=== PATIENT | female | born 1975 | race American Indian/Alaskan Native ===

== ENCOUNTER 2016-11-03 02:02 | Emergency (ER) | payer MEDICAID ==
[2016-11-03] MEDS ORDERED: BENADRYL IV ONE ×2 (08:02→10:29)
[2016-11-03] MEDS ORDERED: MORPHINE IV ONE (08:02)
[2016-11-03] MEDS ORDERED: ZOFRAN IV ONE (08:02)
--- NOTE | 2016-11-03 08:04 | Emergency Department Report ---
HPI - General Chief Complaint: Abdominal Pain Time Seen by Provider: 11/03/16 07:47 - HPI HPI: This is a 40-year-old Afro-[place]ron[place] female who presents to the emergency department with a four-day history of abdominal pain, nausea and vomiting that she believes is an exacerbation of her gastroparesis. She has a past medical history of asthma, CHF, diabetes, hypertension, gastroparesis, spina bifida. She has a past surgical history of appendectomy and cholecystectomy. Patient says she recently saw her advertising coordinator and was diagnosed with an upper hiatal hernia. She went to see [facility] [place] yesterday and is going to be set up for more evaluations for possible surgical repair of that. She has been trying to take her Phenergan, Reglan and a "pain pill" but she is unable to keep it down to treat herself. No recent travel or sick contacts at home. Her primary care doctor is a Dr. Aamral, and she says that she sees a Dr. Redding for gastroenterology "across the street." ED Past Medical Hx - Past Medical History Previous Medical History?: Yes Hx Hypertension: Yes (pateint states mild CHF) Hx CVA: No Hx Heart Attack/AMI: No Hx Congestive Heart Failure: Yes Hx Diabetes: Yes Hx Deep Vein Thrombosis: No Hx Pulmonary Embolism: No Hx GERD: No Hx Liver Disease: No Hx Renal Disease: No Hx Sickle Cell Disease: No Hx Arthritis: No Hx Headaches / Migraines: No Hx Seizures: No Hx Kidney Stones: No Hx Psychiatric Treatment: No Hx Asthma: Yes Hx COPD: No Hx Dementia: No Hx HIV: No Additional medical history: gastroparesis. spina bifida. OBESITY - Surgical History Past Surgical History?: Yes Hx Coronary Stent: No Hx Open Heart Surgery: No Hx Pacemaker: No Hx Internal Defibrillator: No Hx Cholecystectomy: Yes Hx Appendectomy: Yes Hx Breast Surgery: Yes (REDUCTION) Additional Surgical History: port, c- section - Social History Smoking Status: Never Smoker Substance Use Type: Alcohol - Medications Home Medications: Home Medications Medication Instructions Recorded Confirmed Last Taken Type Lisinopril [Zestril TAB] 10 mg PO QDAY 04/28/14 11/03/16 04/27/14 History Insulin NPH Hum/Reg Insulin Hm 30 unit SQ QAM 09/14/15 11/03/16 Unknown History [HumuLIN 70-30 Vial] Insulin NPH Hum/Reg Insulin Hm 40 unit SQ QPM 09/14/15 11/03/16 Unknown History [HumuLIN 70-30 Vial] Sertraline [Zoloft] 100 mg PO QDAY 09/14/15 11/03/16 Unknown History methOCARBAMOL [Robaxin TAB] 500 mg PO BID 06/27/16 11/03/16 Unknown History Pantoprazole [Protonix TAB] 40 mg PO QDAY #30 tablet 08/16/16 11/03/16 Unknown Rx oxyCODONE /ACETAMINOPHEN [Percocet 1 tab PO Q6HR PRN #12 tablet 08/16/16 Unknown Rx 5/325 mg] Labetalol [Normodyne TAB] 100 mg PO BID #60 tablet 08/19/16 11/03/16 Unknown Rx Ondansetron [Zofran Odt] 4 mg PO Q6H #14 tab.rapdis 08/19/16 11/03/16 Unknown Rx Metoclopramide [Reglan] 10 mg PO TID PRN #20 tab 08/23/16 11/03/16 Unknown Rx traMADol [Ultram 50 MG tab] 50 mg PO Q4HR PRN #12 tablet 08/23/16 11/03/16 Unknown Rx Promethazine [Phenergan TAB] 25 mg PO Q6HR PRN #10 tab 08/24/16 11/03/16 Unknown Rx ED Review of Systems ROS: Stated complaint: EMESIS/BACK PAIN Other details as noted in HPI Comment: All other systems reviewed and negative Constitutional: denies: chills, fever Eyes: denies: eye pain, eye discharge, vision change ENT: denies: ear pain, throat pain Respiratory: denies: cough, shortness of breath, wheezing Cardiovascular: denies: chest pain, palpitations Gastrointestinal: abdominal pain, nausea, vomiting Genitourinary: denies: urgency, dysuria, discharge Musculoskeletal: back pain. denies: arthralgia Skin: denies: rash, lesions Neurological: denies: headache, weakness, paresthesias Physical Exam - Physical Exam Vital Signs: Vital Signs 11/03/16 11/03/16 11/03/16 02:23 05:00 05:30 Temperature 97.4 F L 99 F Pulse Rate 87 88 Respiratory 20 18 18 Rate Blood Pressure 159/97 Blood Pressure 152/88 [Right] O2 Sat by Pulse 100 98 98 Oximetry Physical Exam: GENERAL: The patient is well-developed well-nourished. HEENT: Normocephalic. Atraumatic. Extraocular motions are intact. Patient has moist mucous membranes. Pupils equal reactive to light bilaterally. NECK: Supple. Trachea is midline. CHEST/LUNGS: Clear to auscultation. There is no respiratory distress noted. HEART/CARDIOVASCULAR: Regular. There is no tachycardia. There is no gallop rub or murmur. ABDOMEN: Abdomen is soft. Generalized tenderness to palpation of the abdomen. No guarding rebound tenderness. No peritoneal signs. Morbidly obese habitus. Patient has normal bowel sounds. There is no abdominal distention. SKIN: There is no rash. There is no diaphoresis. NEURO: The patient is awake, alert, and oriented. The patient is cooperative. The patient has no focal neurologic deficits. The patient has normal speech. MUSCULOSKELETAL: There is no tenderness or deformity. There is no limitation range of motion. There is no evidence of acute injury. ED Course Vital Signs 11/03/16 11/03/16 11/03/16 02:23 05:00 05:30 Temperature 97.4 F L 99 F Pulse Rate 87 88 Respiratory 20 18 18 Rate Blood Pressure 159/97 Blood Pressure 152/88 [Right] O2 Sat by Pulse 100 98 98 Oximetry ED Medical Decision Making - Lab Data Result diagrams: 11/03/16 08:15 11/03/16 08:15 - Radiology Data Radiology results: image reviewed interpreted by me: Abdominal x-ray shows nonspecific nonobstructive bowel gas. - Medical Decision Making 40-year-old female with a history of gastroparesis presents to the emergency department with abdominal pain, nausea and vomiting. Patient's vital signs of in stable throughout her ED course. The patient's labs are mostly unremarkable without any signs of infection in the blood or urine, electrolyte abnormalities , renal insufficiency, and the patient's belly labs of a normal including lipase , LFTs and bilirubin. An abdominal x-ray was done does not show any signs of obstruction and was confirmed as normal by radiology. Patient was given some pain medication and antinausea medication and upon reevaluation she is feeling much better. She'll be discharged home to follow-up with her primary care doctor and advertising coordinator and to continue looking into her history of hiatal hernia that may need surgical repair. The patient will return to the emergency department with any further worsening of her symptoms or any acute distress. - Differential Diagnosis gastroparesis, colitis, diverticulitis, gastritis, food poisoning Critical Care Time: No Critical care attestation.: If time is entered above; I have spent that time in minutes in the direct care of this critically ill patient, excluding procedure time. ED Disposition Clinical Impression: Gastroparesis, Nausea and vomiting in adult Abdominal pain Qualifiers: Abdominal location: generalized Qualified Code(s): R10.84 - Generalized abdominal pain Hypertension Qualifiers: Hypertension type: essential hypertension Qualified Code(s): I10 - Essential ( primary) hypertension Disposition: DISCHARGED TO HOME OR SELFCARE Is pt being admited?: No Does the pt Need Aspirin: No Condition: Stable Instructions: Abdominal Pain (ED), Hypertension (ED), Acute Nausea and Vomiting (ED) Additional Instructions: Please follow-up with your primary care doctor, advertising coordinator, and the surgery [facility] physicians. Return to the emergency department with any worsening of your symptoms or any acute distress. Referrals: LINDA JEROME MD [Primary Care Provider] - 3-5 Days Time of Disposition: 11:37
[2016-11-03] MEDS ORDERED: DILAUDID IV ONE ×3 (08:17→11:32)
[2016-11-03 08:51] LABS: Basophils % (Auto) 0.4 % (0.0-1.8); Eosinophils % (Auto) 1.1 % (0.0-4.3); Hematocrit 42.6 % (30.3-42.9); Hemoglobin 13.2 gm/dl (10.1-14.3); Mean Corpuscular HGB Conc 31 % (30-34); Mean Corpuscular Volume 81 fl (79-97); Platelet Count 228 K/mm3 (140-440); Red Blood Count 5.27 M/mm3 (3.65-5.03); Red Cell Distribution Width 18.6 % (13.2-15.2); White Blood Count 3.9 K/mm3 (4.5-11.0)
[2016-11-03 08:56] LABS: Mean Corpuscular Hemoglobin 25 pg (28-32)
[2016-11-03 09:09] LABS: Alanine Aminotransferase 6 units/L (7-56); Albumin 3.8 g/dL (3.9-5); Alkaline Phosphatase 104 units/L (35-129); Anion Gap 18 mmol/L; BUN/Creatinine Ratio 14.16; Bilirubin,Total < 0.2 mg/dL (0.1-1.2); Blood Urea Nitrogen 17 mg/dL (7-17); Carbon Dioxide 25 mmol/L (22-30); Chloride 100.3 mmol/L (98-107); Glucose 180 mg/dL (65-100); Lipase 14 units/L (13-60); Potassium 4.2 mmol/L (3.6-5.0); Sodium 139 mmol/L (137-145); Total Protein 7.7 g/dL (6.3-8.2)
[2016-11-03 09:42] LABS: Bilirubin,Urine NEG (Negative); Blood,Urine NEG (Negative); Ketones,Urine NEG (Negative); Leukocyte Esterase,Urine NEG (Negative); Nitrite,Urine NEG (Negative); Protein,Urine <15 mg/dL mg/dL (Negative); Urobilinogen,Urine < 2.0 mg/dL (<2.0)
--- NOTE | 2016-11-03 11:19 | XRay Report ---
ABDOMEN 2 VIEWS: HISTORY: Abdominal pain. FINDINGS: No free intraperitoneal air. Stool in colon. No bowel distention or wall thickening. No radiopaque calculus or abnormal calcification. No fluid levels. IMPRESSION: Stool in colon. No bowel obstruction.
[2016-11-03 11:47] VITALS: BP 133/77
[2016-11-03] MEDS ORDERED: FLUSH HEPARIN IV ONE (11:48)
== END 2016-11-03 12:03 | disposition home or self-care (01) ==
LOC: ED 02:02
DX: K31.84 Gastroparesis (principal); I10 Essential (primary) hypertension; E11.9 Type 2 diabetes mellitus without complications; I50.9 Heart failure, unspecified; J45.909 Unspecified asthma, uncomplicated; E66.9 Obesity, unspecified; Z79.4 Long term (current) use of insulin; Z98.890 Other specified postprocedural states
CPT/HCPCS: 36415; 74020; 80053; 81001; 81025; 83690; 85025; 96374; 96375; 96376; 99284; J1170; J1200; J1642; J2405; J2270

== ENCOUNTER 2016-12-31 04:38 | Emergency (ER) | payer MEDICAID ==
[2016-12-31 06:08] VITALS: BP 171/129
== END 2016-12-31 06:20 | disposition left against medical advice (07) ==
LOC: ED 04:38
DX: R11.10 Vomiting, unspecified (principal); R10.9 Unspecified abdominal pain; Z53.21 Procedure and treatment not carried out due to patient leaving prior to being seen by health care provider
CPT/HCPCS: 82962

== ENCOUNTER 2017-01-05 04:18 | Emergency (ER) | payer MEDICAID ==
[2017-01-05 04:51] VITALS: BP 182/102
== END 2017-01-05 04:30 | disposition left against medical advice (07) ==
LOC: ED 04:18
DX: R11.2 Nausea with vomiting, unspecified (principal); Z53.21 Procedure and treatment not carried out due to patient leaving prior to being seen by health care provider

== ENCOUNTER 2017-01-07 04:43 | Emergency (ER) | payer MEDICAID ==
[2017-01-07] MEDS ORDERED: ZOFRAN ODT PO/SL ONE (10:20)
[2017-01-07] MEDS ORDERED: DILAUDID IV ONE ×3 (10:20→14:22)
[2017-01-07] MEDS ORDERED: NACL 0.9% 1000 ML 1,000 ML IV ONE (10:20)
[2017-01-07] MEDS ORDERED: REGLAN IV ONE (10:20)
[2017-01-07] MEDS ORDERED: BENADRYL IV ONE ×3 (10:21→14:23)
[2017-01-07 10:22] LABS: Basophils % (Auto) 0.4 % (0.0-1.8); Eosinophils % (Auto) 1.1 % (0.0-4.3); Hematocrit 26.7 % (30.3-42.9); Hemoglobin 8.3 gm/dl (10.1-14.3); Mean Corpuscular HGB Conc 31 % (30-34); Mean Corpuscular Volume 84 fl (79-97); Platelet Count 396 K/mm3 (140-440); Red Blood Count 3.19 M/mm3 (3.65-5.03); Red Cell Distribution Width 17.5 % (13.2-15.2)
[2017-01-07 10:24] LABS: Mean Corpuscular Hemoglobin 26 pg (28-32)
--- NOTE | 2017-01-07 10:24 | Emergency Department Report ---
ED Abdominal Pain HPI - General Chief Complaint: Abdominal Pain Stated Complaint: ABD PAIN, VOMINTING Time Seen by Provider: 01/07/17 10:03 Source: patient Mode of arrival: Ambulatory Limitations: No Limitations - History of Present Illness Complaint: abdominal pain -: Gradual (review of old equal to light.) Location: diffuse Radiation: none Migration to: no migration Severity: mild Severity scale (0 -10): 10 Quality: cramping Consistency: intermittent Improves With: nothing Worsens With: nothing Associated Symptoms: nausea, vomiting. denies: diarrhea, fever, chills, constipation, dysuria, hematemesis, hematochezia, melena, hematuria, anorexia, syncope - Related Data Home Medications Medication Instructions Recorded Confirmed Last Taken Lisinopril [Zestril TAB] 10 mg PO QDAY 04/28/14 11/03/16 04/27/14 Insulin NPH Hum/Reg Insulin Hm 30 unit SQ QAM 09/14/15 11/03/16 Unknown [HumuLIN 70-30 Vial] Insulin NPH Hum/Reg Insulin Hm 40 unit SQ QPM 09/14/15 11/03/16 Unknown [HumuLIN 70-30 Vial] Sertraline [Zoloft] 100 mg PO QDAY 09/14/15 11/03/16 Unknown methOCARBAMOL [Robaxin TAB] 500 mg PO BID 06/27/16 11/03/16 Unknown Previous Rx's Medication Instructions Recorded Last Taken Type Pantoprazole [Protonix TAB] 40 mg PO QDAY #30 tablet 08/16/16 Unknown Rx Labetalol [Normodyne TAB] 100 mg PO BID #60 tablet 08/19/16 Unknown Rx Ondansetron [Zofran Odt] 4 mg PO Q6H #14 tab.rapdis 08/19/16 Unknown Rx Metoclopramide [Reglan] 10 mg PO TID PRN #20 tab 08/23/16 Unknown Rx Omeprazole Magnesium [PriLOSEC Otc] 20 mg PO QDAY #14 tablet. 11/18/16 Unknown Rx Promethazine [Phenergan TAB] 25 mg PO Q6HR PRN #10 tab 11/18/16 Unknown Rx Promethazine [Phenergan TAB] 25 mg PO Q8HR PRN #20 tab 01/07/17 Unknown Rx Allergies Allergy/AdvReac Type Severity Reaction Status Date / Time ketorolac tromethamine Allergy Severe Swelling Verified 07/19/16 09:00 [From Toradol] meperidine HCl [From Demerol] Allergy Swelling Verified 07/19/16 09:00 ED Review of Systems ROS: Stated complaint: ABD PAIN, VOMINTING Other details as noted in HPI Constitutional: denies: chills, fever Eyes: denies: eye pain, eye discharge, vision change ENT: denies: ear pain, throat pain Respiratory: denies: cough, shortness of breath, wheezing Cardiovascular: denies: chest pain, palpitations Endocrine: no symptoms reported Gastrointestinal: abdominal pain, nausea, vomiting. denies: diarrhea Genitourinary: denies: urgency, dysuria, discharge Musculoskeletal: denies: back pain, joint swelling, arthralgia Skin: denies: rash, lesions Neurological: denies: headache, weakness, paresthesias Psychiatric: denies: anxiety, depression Hematological/Lymphatic: denies: easy bleeding, easy bruising ED Past Medical Hx - Past Medical History Hx Hypertension: Yes (pateint states mild CHF) Hx CVA: No Hx Heart Attack/AMI: No Hx Congestive Heart Failure: Yes Hx Diabetes: Yes Hx Deep Vein Thrombosis: No Hx Pulmonary Embolism: No Hx GERD: No Hx Liver Disease: No Hx Renal Disease: No Hx Sickle Cell Disease: No Hx Arthritis: No Hx Headaches / Migraines: No Hx Seizures: No Hx Kidney Stones: No Hx Psychiatric Treatment: No Hx Asthma: Yes Hx COPD: No Hx Dementia: No Hx HIV: No Additional medical history: gastroparesis. spina bifida. OBESITY - Surgical History Hx Coronary Stent: No Hx Open Heart Surgery: No Hx Pacemaker: No Hx Internal Defibrillator: No Hx Cholecystectomy: Yes Hx Appendectomy: Yes Hx Breast Surgery: Yes (REDUCTION) Additional Surgical History: port, c- section - Social History Smoking Status: Never Smoker Substance Use Type: None - Medications Home Medications: Home Medications Medication Instructions Recorded Confirmed Last Taken Type Lisinopril [Zestril TAB] 10 mg PO QDAY 04/28/14 11/03/16 04/27/14 History Insulin NPH Hum/Reg Insulin Hm 30 unit SQ QAM 09/14/15 11/03/16 Unknown History [HumuLIN 70-30 Vial] Insulin NPH Hum/Reg Insulin Hm 40 unit SQ QPM 09/14/15 11/03/16 Unknown History [HumuLIN 70-30 Vial] Sertraline [Zoloft] 100 mg PO QDAY 09/14/15 11/03/16 Unknown History methOCARBAMOL [Robaxin TAB] 500 mg PO BID 06/27/16 11/03/16 Unknown History Pantoprazole [Protonix TAB] 40 mg PO QDAY #30 tablet 08/16/16 11/03/16 Unknown Rx Labetalol [Normodyne TAB] 100 mg PO BID #60 tablet 08/19/16 11/03/16 Unknown Rx Ondansetron [Zofran Odt] 4 mg PO Q6H #14 tab.rapdis 08/19/16 11/03/16 Unknown Rx Metoclopramide [Reglan] 10 mg PO TID PRN #20 tab 08/23/16 11/03/16 Unknown Rx Omeprazole Magnesium [PriLOSEC Otc] 20 mg PO QDAY #14 tablet. 11/18/16 Unknown Rx Promethazine [Phenergan TAB] 25 mg PO Q6HR PRN #10 tab 11/18/16 Unknown Rx Promethazine [Phenergan TAB] 25 mg PO Q8HR PRN #20 tab 01/07/17 Unknown Rx ED Physical Exam - General Limitations: No Limitations General appearance: alert, in no apparent distress - Head Head exam: Present: atraumatic, normocephalic - Eye Eye exam: Present: normal appearance - ENT ENT exam: Present: mucous membranes moist - Neck Neck exam: Present: normal inspection - Respiratory Respiratory exam: Present: normal lung sounds bilaterally. Absent: respiratory distress - Cardiovascular Cardiovascular Exam: Present: regular rate, normal rhythm. Absent: systolic murmur, diastolic murmur, rubs, gallop - GI/Abdominal GI/Abdominal exam: Present: soft, normal bowel sounds. Absent: distended, tenderness, guarding, rebound, rigid, organomegaly, mass, bruit, pulsatile mass , hernia - Rectal Rectal exam: Present: deferred - Extremities Exam Extremities exam: Present: normal inspection - Back Exam Back exam: Present: normal inspection - Neurological Exam Neurological exam: Present: alert, oriented X3 - Psychiatric Psychiatric exam: Present: normal affect, normal mood - Skin Skin exam: Present: warm, dry, intact, normal color. Absent: rash ED Course Vital Signs 01/07/17 01/07/17 01/07/17 05:23 09:50 10:05 Temperature 98.5 F 98.6 F Pulse Rate 104 H 99 H Respiratory 18 20 Rate Blood Pressure 176/101 Blood Pressure 176/101 146/102 [Left] O2 Sat by Pulse 100 100 100 Oximetry 01/07/17 13:20 Temperature Pulse Rate 83 Respiratory 18 Rate Blood Pressure Blood Pressure 161/105 [Left] O2 Sat by Pulse 100 Oximetry ED Medical Decision Making - Lab Data Result diagrams: 01/07/17 09:48 01/07/17 09:48 - Radiology Data Radiology results: report reviewed - Medical Decision Making Patient improved here in the ER, offered admission but she needs to go home and take care of her daughters, labs within normal limits, no ct abd/pelvis after her abdominal exam is non tender , no guarding , no rebound, tolerating po here. Critical care attestation.: If time is entered above; I have spent that time in minutes in the direct care of this critically ill patient, excluding procedure time. ED Disposition Clinical Impression: Acute abdominal pain, Gastritis, Morbid obesity, Nausea and vomiting in adult Disposition: DISCHARGED TO HOME OR SELFCARE Is pt being admited?: No Does the pt Need Aspirin: No Condition: Good Instructions: Abdominal Pain (ED) Prescriptions: Promethazine [Phenergan TAB] 25 mg PO Q8HR PRN #20 tab PRN Reason: Nausea Referrals: PRIMARY CARE, [Primary Care Provider] - 3-5 Days Time of Disposition: 13:23
[2017-01-07 10:38] LABS: Alanine Aminotransferase 8 units/L (7-56); Albumin 3.9 g/dL (3.9-5); Albumin/Globulin Ratio 1.1 %; Alkaline Phosphatase 97 units/L (35-129); Anion Gap 19 mmol/L; BUN/Creatinine Ratio 10.83; Bilirubin,Total 0.2 mg/dL (0.1-1.2); Blood Urea Nitrogen 13 mg/dL (7-17); Calcium 9.8 mg/dL (8.4-10.2); Carbon Dioxide 22 mmol/L (22-30); Chloride 103.2 mmol/L (98-107); Glucose 170 mg/dL (65-100); Lipase 11 units/L (13-60); Potassium 4.1 mmol/L (3.6-5.0); Sodium 140 mmol/L (137-145); Total Protein 7.5 g/dL (6.3-8.2)
[2017-01-07] MEDS ORDERED: PROTONIX IV ONE ×2 (12:02→12:13)
--- NOTE | 2017-01-07 12:36 | XRay Report ---
ABDOMEN, 2 views: History: Abdominal pain. There is no evidence of free air beneath the diaphragms. The gas pattern within the abdomen is unremarkable. There is no evidence of bowel dilatation, significant air-fluid levels, or pathologic calcifications. Organ shadows are unremarkable. IMPRESSION: No acute abdominal process is appreciated.
[2017-01-07] MEDS ORDERED: NORMODYNE IV ONE ×2 (14:09→14:23)
[2017-01-07] MEDS ORDERED: FLUSH HEPARIN IV ONE ×2 (14:53→14:57)
[2017-01-07 15:09] VITALS: BP 155/94
== END 2017-01-07 15:08 | disposition home or self-care (01) ==
LOC: ED 04:43
DX: K29.70 Gastritis, unspecified, without bleeding (principal); E66.01 Morbid (severe) obesity due to excess calories; I10 Essential (primary) hypertension; I50.9 Heart failure, unspecified; E11.9 Type 2 diabetes mellitus without complications; J45.909 Unspecified asthma, uncomplicated; Z90.49 Acquired absence of other specified parts of digestive tract; Z79.4 Long term (current) use of insulin; Z88.8 Allergy status to other drugs, medicaments and biological substances
CPT/HCPCS: 36415; 74020; 80053; 82962; 83690; 84703; 85025; 96361; 96374; 96375; 96376; 99284; C9113; J1170; J1200; J1642; J2765; J7030; Q0162

== ENCOUNTER 2017-01-21 02:47 | Emergency (ER) | payer MEDICAID ==
--- NOTE | 2017-01-21 06:58 | Emergency Department Report ---
ED Abdominal Pain HPI - General Chief Complaint: Abdominal Pain Stated Complaint: VOMITING,ABD PAIN, BACK PAIN Time Seen by Provider: 01/21/17 06:57 Source: patient Mode of arrival: Ambulatory Limitations: No Limitations - History of Present Illness Initial Comments: This is the fourth ER visit for abdominal pain in this patient during the month of December. She admits that she is in chronic pain management. She is obviously violating her contract. At the time of my initial encounter, I found the patient sleeping and she had to be awoken. She states that she has chronic diffuse abdominal pain. She states that she is in chronic pain management for spinal stenosis. She has a history of diabetes. She states that she is nauseated but is not vomiting now. She's had no recent fever or chills. She does have a port. She is specifically requesting Dilaudid. MD Complaint: abdominal pain -: year(s) Location: diffuse Radiation: none Migration to: no migration Quality: aching Consistency: constant Improves With: nothing Worsens With: nothing Context: other Associated Symptoms: nausea - Related Data Home Medications Medication Instructions Recorded Confirmed Last Taken Lisinopril [Zestril TAB] 10 mg PO QDAY 04/28/14 11/03/16 04/27/14 Insulin NPH Hum/Reg Insulin Hm 30 unit SQ QAM 09/14/15 11/03/16 Unknown [HumuLIN 70-30 Vial] Insulin NPH Hum/Reg Insulin Hm 40 unit SQ QPM 09/14/15 11/03/16 Unknown [HumuLIN 70-30 Vial] Sertraline [Zoloft] 100 mg PO QDAY 09/14/15 11/03/16 Unknown methOCARBAMOL [Robaxin TAB] 500 mg PO BID 06/27/16 11/03/16 Unknown Previous Rx's Medication Instructions Recorded Last Taken Type Pantoprazole [Protonix TAB] 40 mg PO QDAY #30 tablet 08/16/16 Unknown Rx Labetalol [Normodyne TAB] 100 mg PO BID #60 tablet 08/19/16 Unknown Rx Ondansetron [Zofran Odt] 4 mg PO Q6H #14 tab.rapdis 08/19/16 Unknown Rx Metoclopramide [Reglan] 10 mg PO TID PRN #20 tab 08/23/16 Unknown Rx Omeprazole Magnesium [PriLOSEC Otc] 20 mg PO QDAY #14 tablet. 11/18/16 Unknown Rx Promethazine [Phenergan TAB] 25 mg PO Q6HR PRN #10 tab 11/18/16 Unknown Rx Dicyclomine [Bentyl] 20 mg PO QID #30 tablet 01/07/17 Unknown Rx Promethazine [Phenergan TAB] 25 mg PO Q8HR PRN #20 tab 01/07/17 Unknown Rx Ondansetron [Zofran Odt] 4 mg PO Q6H #14 tab.rapdis 01/21/17 Unknown Rx Allergies Allergy/AdvReac Type Severity Reaction Status Date / Time ketorolac tromethamine Allergy Severe Swelling Verified 07/19/16 09:00 [From Toradol] meperidine HCl [From Demerol] Allergy Swelling Verified 07/19/16 09:00 ED Review of Systems ROS: Stated complaint: VOMITING,ABD PAIN, BACK PAIN Other details as noted in HPI Constitutional: denies: chills, fever Eyes: denies: eye pain, eye discharge, vision change ENT: denies: ear pain, throat pain Respiratory: denies: cough, shortness of breath, wheezing Cardiovascular: denies: chest pain, palpitations Endocrine: no symptoms reported Gastrointestinal: as per HPI, abdominal pain, nausea. denies: diarrhea Genitourinary: denies: urgency, dysuria, discharge Musculoskeletal: denies: back pain, joint swelling, arthralgia Skin: denies: rash, lesions Neurological: denies: headache, weakness, paresthesias Psychiatric: denies: anxiety, depression Hematological/Lymphatic: denies: easy bleeding, easy bruising ED Past Medical Hx - Past Medical History Hx Hypertension: Yes (pateint states mild CHF) Hx CVA: No Hx Heart Attack/AMI: No Hx Congestive Heart Failure: Yes Hx Diabetes: Yes Hx Deep Vein Thrombosis: No Hx Pulmonary Embolism: No Hx GERD: No Hx Liver Disease: No Hx Renal Disease: No Hx Sickle Cell Disease: No Hx Arthritis: No Hx Headaches / Migraines: No Hx Seizures: No Hx Kidney Stones: No Hx Psychiatric Treatment: No Hx Asthma: Yes Hx COPD: No Hx Dementia: No Hx HIV: No Additional medical history: gastroparesis. spina bifida. OBESITY - Surgical History Hx Coronary Stent: No Hx Open Heart Surgery: No Hx Pacemaker: No Hx Internal Defibrillator: No Hx Cholecystectomy: Yes Hx Appendectomy: Yes Hx Breast Surgery: Yes (REDUCTION) Additional Surgical History: port, c- section - Social History Smoking Status: Never Smoker Substance Use Type: None - Medications Home Medications: Home Medications Medication Instructions Recorded Confirmed Last Taken Type Lisinopril [Zestril TAB] 10 mg PO QDAY 04/28/14 11/03/16 04/27/14 History Insulin NPH Hum/Reg Insulin Hm 30 unit SQ QAM 09/14/15 11/03/16 Unknown History [HumuLIN 70-30 Vial] Insulin NPH Hum/Reg Insulin Hm 40 unit SQ QPM 09/14/15 11/03/16 Unknown History [HumuLIN 70-30 Vial] Sertraline [Zoloft] 100 mg PO QDAY 09/14/15 11/03/16 Unknown History methOCARBAMOL [Robaxin TAB] 500 mg PO BID 06/27/16 11/03/16 Unknown History Pantoprazole [Protonix TAB] 40 mg PO QDAY #30 tablet 08/16/16 11/03/16 Unknown Rx Labetalol [Normodyne TAB] 100 mg PO BID #60 tablet 08/19/16 11/03/16 Unknown Rx Ondansetron [Zofran Odt] 4 mg PO Q6H #14 tab.rapdis 08/19/16 11/03/16 Unknown Rx Metoclopramide [Reglan] 10 mg PO TID PRN #20 tab 08/23/16 11/03/16 Unknown Rx Omeprazole Magnesium [PriLOSEC Otc] 20 mg PO QDAY #14 tablet. 11/18/16 Unknown Rx Promethazine [Phenergan TAB] 25 mg PO Q6HR PRN #10 tab 11/18/16 Unknown Rx Dicyclomine [Bentyl] 20 mg PO QID #30 tablet 01/07/17 Unknown Rx Promethazine [Phenergan TAB] 25 mg PO Q8HR PRN #20 tab 01/07/17 Unknown Rx Ondansetron [Zofran Odt] 4 mg PO Q6H #14 tab.rapdis 01/21/17 Unknown Rx ED Physical Exam - General Limitations: No Limitations General appearance: alert, in no apparent distress, obese - Head Head exam: Present: atraumatic, normocephalic - Eye Eye exam: Present: normal appearance. Absent: scleral icterus - ENT ENT exam: Present: mucous membranes moist - Neck Neck exam: Present: normal inspection - Respiratory Respiratory exam: Present: normal lung sounds bilaterally. Absent: respiratory distress - Cardiovascular Cardiovascular Exam: Present: regular rate, normal rhythm. Absent: systolic murmur, diastolic murmur, rubs, gallop - GI/Abdominal GI/Abdominal exam: Present: soft, normal bowel sounds. Absent: distended, tenderness, guarding, rebound, rigid, organomegaly, mass, bruit, pulsatile mass , hernia - Extremities Exam Extremities exam: Present: normal inspection - Back Exam Back exam: Present: normal inspection - Neurological Exam Neurological exam: Present: alert, oriented X3, CN II-XII intact. Absent: motor sensory deficit - Psychiatric Psychiatric exam: Present: normal affect, normal mood - Skin Skin exam: Present: warm, dry, intact, normal color. Absent: rash ED Course Vital Signs 01/21/17 01/21/17 01/21/17 03:06 04:08 04:10 Temperature 97.5 F L Pulse Rate 86 89 Respiratory 18 10 L Rate Blood Pressure 172/110 150/100 Blood Pressure 172/110 [Left] O2 Sat by Pulse 100 99 100 Oximetry 01/21/17 01/21/17 01/21/17 05:00 06:00 07:00 Temperature Pulse Rate 82 87 76 Respiratory 15 13 15 Rate Blood Pressure 140/72 140/72 140/72 Blood Pressure [Left] O2 Sat by Pulse 99 100 100 Oximetry 01/21/17 08:00 Temperature Pulse Rate 84 Respiratory 13 Rate Blood Pressure Blood Pressure 150/81 [Left] O2 Sat by Pulse 100 Oximetry - Reevaluation(s) Reevaluation #1: Patient was counseled that she would be violating her pain management program by coming to the emergency department 4 times in a month. The specific request for Dilaudid is denied as I do not think that it is in the patient's best interest. In fact repeated IV Dilaudid could certainly be associated with rebound pain and withdrawal. The patient declined oral medication and requested discharge. I offered a prescription for oral medication but she declined it. I will give her a prescription for Zofran just in case she needs that. 01/21/17 08:26 01/21/17 08:27 ED Medical Decision Making - Lab Data Result diagrams: 01/21/17 07:25 01/21/17 07:25 Critical care attestation.: If time is entered above; I have spent that time in minutes in the direct care of this critically ill patient, excluding procedure time. ED Disposition Clinical Impression: Chronic abdominal pain Anemia Qualifiers: Anemia type: unspecified type Qualified Code(s): D64.9 - Anemia, unspecified Disposition: DISCHARGED TO HOME OR SELFCARE Is pt being admited?: No Does the pt Need Aspirin: No Condition: Stable Instructions: Abdominal Pain (ED), Chronic Pain (ED) Additional Instructions: Chronic pain management must be provided by your chronic pain management clinic. IV Dilaudid may result in rebound pain and withdrawal that will make your chronic pain syndrome worse. It is not indicated at this time. Prescriptions: Ondansetron [Zofran Odt] 4 mg PO Q6H #14 tab.regidis Referrals: PRIMARY CARE, [Primary Care Provider] - 3-5 Days Time of Disposition: 08:29
[2017-01-21] MEDS ORDERED: ZOFRAN ODT PO ONE (07:18)
[2017-01-21] MEDS ORDERED: NORCO 5/325 PO ONE (07:18)
[2017-01-21 07:40] LABS: Basophils % (Auto) 0.4 % (0.0-1.8); Hematocrit 25.9 % (30.3-42.9); Hemoglobin 8.2 gm/dl (10.1-14.3); Mean Corpuscular HGB Conc 32 % (30-34); Mean Corpuscular Hemoglobin 27 pg (28-32); Mean Corpuscular Volume 84 fl (79-97); Platelet Count 294 K/mm3 (140-440); Red Blood Count 3.08 M/mm3 (3.65-5.03); Red Cell Distribution Width 18.3 % (13.2-15.2); White Blood Count 6.8 K/mm3 (4.5-11.0)
[2017-01-21 08:01] VITALS: BP 150/81
[2017-01-21 08:03] LABS: Alanine Aminotransferase 6 units/L (7-56); Albumin 3.5 g/dL (3.9-5); Albumin/Globulin Ratio 1.1 %; Alkaline Phosphatase 84 units/L (35-129); Anion Gap 16 mmol/L; BUN/Creatinine Ratio 16.36; Bilirubin,Total < 0.2 mg/dL (0.1-1.2); Blood Urea Nitrogen 18 mg/dL (7-17); Calcium 8.8 mg/dL (8.4-10.2); Carbon Dioxide 25 mmol/L (22-30); Chloride 103.1 mmol/L (98-107); Glucose 137 mg/dL (65-100); Lipase 15 units/L (13-60); Potassium 4.1 mmol/L (3.6-5.0); Sodium 140 mmol/L (137-145); Total Protein 6.7 g/dL (6.3-8.2)
[2017-01-21] MEDS ORDERED: FLUSH HEPARIN IV ONE ×2 (08:33→08:43)
== END 2017-01-21 08:51 | disposition home or self-care (01) ==
LOC: ED 02:47
DX: D64.9 Anemia, unspecified (principal); R10.84 Generalized abdominal pain; G89.29 Other chronic pain; I10 Essential (primary) hypertension; E11.9 Type 2 diabetes mellitus without complications; I50.9 Heart failure, unspecified; J45.909 Unspecified asthma, uncomplicated; K31.84 Gastroparesis; E66.9 Obesity, unspecified; Z90.49 Acquired absence of other specified parts of digestive tract; Z98.890 Other specified postprocedural states; Z79.4 Long term (current) use of insulin; Z88.5 Allergy status to narcotic agent; Z88.6 Allergy status to analgesic agent
CPT/HCPCS: 36415; 80053; 83690; 85025; 99283; J1642; 96374; Q0162

== ENCOUNTER 2017-01-24 05:01 | Emergency (ER) | payer MEDICAID ==
[2017-01-24 05:41] VITALS: BP 199/125
--- NOTE | 2017-02-01 14:34 | ED Elopement Review ---
ED Pt Elopement review - Call Back decision Pt Call Back Decision: No action required
== END 2017-01-24 05:06 | disposition left against medical advice (07) ==
LOC: ED 05:01
DX: R11.2 Nausea with vomiting, unspecified (principal); R07.9 Chest pain, unspecified; Z53.21 Procedure and treatment not carried out due to patient leaving prior to being seen by health care provider